=== PATIENT | female | born 1945 | race Caucasian/White ===

== ENCOUNTER 2023-09-25 20:45 | Emergency (ER) | payer OTHER, SELFPAY ==
[2023-09-25 20:53] VITALS: BP 154/68
--- NOTE | 2023-09-25 21:22 | ED.GENMED ---
History of Present Illness
<Brandi London PA-C - Last Filed: 09/26/23 00:33>
General
Chief Complaint: Fall
Source: patient
Exam Limitations: none
Time Seen by Provider: 09/25/23 21:03
Nursing documentation reviewed up to this point in time: agreed with
Travel History
Have you had any contact with someone who has COVID-19?: No
Do you have any symptoms of coronavirus? Fever > 100 degrees, chills, cough, shortness of breath, sore throat, loss of taste or smell, muscle aches, or headache?: No
History of Present Illness
History of Present Illness:
Patient is a 78-year-old female with history hypertension, hyperlipidemia, CAD, diabetes presenting for evaluation following mechanical fall earlier today. Patient states that she tripped and fell off her deck step landing on the left side of her
body and twisting her right leg in the process. She came down landing on her right leg which was bent. she is having somewhat significant pain in her right upper calf and difficulty ambulating. She attempted to fall asleep but the pain was too
much to sleep so she came to the emergency department for further evaluation. Patient did notice a small abrasion to her left foot as well. Patient did not hit her head or lose consciousness. She has ambulated very minimally since fall. Patient
denies any numbness/tingling in bilateral lower extremities.
Patient specifically denies any neck pain, back pain, chest pain, shortness of breath. Patient does not take any blood thinners.
Patient reports last tetanus shot was 2 years ago.
Past History
<Brandi London PA-C - Last Filed: 09/26/23 00:33>
Past History
ED Past Medical History: HTN, Hypercholesterolemia, IDDM and Other (endocrine (hypothyroidism))
ED Past Surgical History: Gynecological and Other (Thyroid)
Social History
Tobacco: Non-smoker
Alcohol: None
Drug: None
Personal:
Living: with family
Employment: Not employed
Review of Systems
<Brandi London PA-C - Last Filed: 09/26/23 00:33>
Review of Systems
Allergies reviewed?: Yes
All Other Systems: ROS reviewed and negative except as documented in HPI and ROS
Phy Exam
<Brandi London PA-C - Last Filed: 09/26/23 00:33>
Physical Exam
Physical Exam:
Vitals: Patient's vital signs are stable. Afebrile
General: Patient is well appearing, no acute distress
Skin: Warm and dry, mild superficial abrasion on left dorsal foot
Head: Normocephalic, atraumatic
Eyes: Sclera nonicteric. EOMs intact. No nystagmus.
Throat: Protecting airway
Neck: Normal ROM, no cervical spine tenderness, no meningismus. Trachea midline. No midline spinal tender
Cardiac: Regular rate and rhythm, no murmurs.
Pulm: Normal respiratory effort, no wheezes, rales, rhonchi heard on exam.
Abdomen: Abdomen soft. No abdominal tenderness. No bruising.
Extremities:Superficial abrasions to left dorsal foot as noted above. Mild edema and erythema of left ankle most significant at lateral malleolus with very minimal tenderness. Full range of motion in left ankle without pain. No pain at base of
fifth metatarsal, midfoot, hindfoot, or head of fibula. Full range of motion with no tenderness in bilateral hips. Pelvis stable. Right ankle nontender. No bony tenderness of right knee. Pain noted in right calf with flexion of right knee.
Tenderness to palpation on the right lateral calf muscle. Negative anterior drawer test. No laxity with varus/valgus stress in right knee. Great distal pulses in bilateral lower extremities with sensation fully intact.
Neuro: AAOx3. CN II-XII intact. No focal neurologic deficits.
Psychiatric: Normal affect.
Course
<Brandi London PA-C - Last Filed: 09/26/23 00:33>
Orders/Labs/Results
Orders:
Orders
09/25/23 21:20
Acetaminophen [Tylenol] 650 mg PO NOW STA
Ankle, left 3 view CR [CR Ankle - Left Min 3 Views ] Urgent
Comment:
Reason For Exam: fall, left ankle swelling
Leg Tibia/Fibula, Right 2 View [CR Leg Tibia/fibula Right 2 Vw] Urgent
Comment:
Reason For Exam: fall right lower leg pain
Vital Signs
Initial and Last Documented VS:
Initial Vital Signs
Temp Pulse BP Pulse Ox
98.2 F 75 154/68 99
09/25/23 20:53 09/25/23 20:53 09/25/23 20:53 09/25/23 20:53
Last Documented Vital Signs
Temp Pulse BP Pulse Ox
98.2 F 75 154/68 99
09/25/23 20:53 09/25/23 20:53 09/25/23 20:53 09/25/23 20:53
<Mekhi Mcduffie DO - Last Filed: 09/25/23 23:01>
Orders/Labs/Results
Orders:
Orders
09/25/23 21:20
Acetaminophen [Tylenol] 650 mg PO NOW STA
Ankle, left 3 view CR [CR Ankle - Left Min 3 Views ] Urgent
Comment:
Reason For Exam: fall, left ankle swelling
Leg Tibia/Fibula, Right 2 View [CR Leg Tibia/fibula Right 2 Vw] Urgent
Comment:
Reason For Exam: fall right lower leg pain
Vital Signs
Initial and Last Documented VS:
Initial Vital Signs
Temp Pulse BP Pulse Ox
98.2 F 75 154/68 99
09/25/23 20:53 09/25/23 20:53 09/25/23 20:53 09/25/23 20:53
Last Documented Vital Signs
Temp Pulse BP Pulse Ox
98.2 F 75 154/68 99
09/25/23 20:53 09/25/23 20:53 09/25/23 20:53 09/25/23 20:53
<Brandi London PA-C - Last Filed: 09/26/23 00:33>
MDM/Problems Addressed
Differential Diagnosis Includes:
Not limited to: Contusion, sprain, fracture, muscular strain, ligamentous injury
MDM/Problems Addressed:
78-year-old female presents for evaluation of injuries sustained following mechanical slip and fall off deck step earlier today. She did not hit her head or lose conscious. Vital stable. Exam as above. Relatively well-appearing. Tetanus
up-to-date. Will give Tylenol and ice. Will check x-ray of left ankle and right tibia/fibula although do not suspect acute fracture.
Initial read of x-ray by myself and attending physician showed no acute fracture. Suspect likely abrasion/contusion of left ankle. No evidence of fracture of right lower leg. Given she is most significantly tender with palpation of right
calf�suspect likely calf muscle strain. There is a small area of bruising on right lateral calf. Ligaments of right knee appear intact. She is improved moderately with ice and Tylenol. Stable for discharge with Tylenol, elevation, ice. Return
precautions discussed with patient. Discussed likely will notice worsening bruising over the next few days. Patient comfortable with plan. All questions answered.
Chronic conditions affecting care:
Hypertension
Acute Exacerbation and/or Progression of Chronic Illness:
Acutely hypertensive
<Brandi London PA-C - Last Filed: 09/26/23 00:33>
*Radiology
Radiology exam reviewed: preliminary read by ED provider (No acute fracture)
*Pulse Oximetry
Patient hypoxic: no
*EKG
Interpreted by ED Provider?: NA
*Framing Mill Operator Helper Interpretation
Rate: Framing Mill Operator Helper- N/A
*Critical Care Note
Total Time (30-74mins, 75-104mins- exclusive of procedures): Not Applicable
ED Attending Note
<Brandi London PA-C - Last Filed: 09/26/23 00:33>
-
Portions of this chart may have been created with voice recognition software.� Occasional wrong word or��sound alike� substitutions may have occurred due to the inherent limitations of voice recognition software.
<Mekhi Mcduffie DO - Last Filed: 09/25/23 23:01>
ED Attending Note
Patient seen and examined by attending physician: Yes
I performed the substantive portion of visit, reviewed & personally made and approve the management plan that is documented in note by myself or JUANY.: Yes
ED Attending Note:
Patient is a 78-year-old female who slipped and fell off with her right leg going back underneath her and injuring her left ankle as well as complaining of pain in her right lower leg/knee. Patient was having difficulty weightbearing. Patient
tried to sleep but the pain was too much. Patient came to the emergency department patient denies any head injury. Patient states she was stepping off the deck when it happened. On physical exam patient does not appear to be in any distress.
Patient's pelvis and hips are nontender. Patient's full range of motion of the right hip and left hip without pain or tenderness. Right knee is intact and stable without tenderness although the right lateral gastroc proximally is tender with mild
swelling. Left ankle is nontender and stable but has a anterior lateral superficial abrasion. X-rays were normal. Patient will need ice and Tylenol.
Discharge Plan
Departure
Patient Disposition: Home (Routine Discharge)
Date of Disposition: 09/25/23
Time of Disposition: 23:00
Patient with high blood pressure during this ER visit?: Yes
Condition: Good
Covid-19: Not Applicable
Discharge Problem:
Fall, Strain of right calf muscle, Abrasion of left foot, Left ankle injury
Instructions: Lower Extremity Muscle Strain (DC), Abrasions ED, BLOOD PRESSURE
Prescriptions:
No Action
latanoprost 1 DROP drops
1 drp BOTH EYES HS
insulin aspart U-100 [Novolog FlexPen U-100 Insulin] 300 UNITS/3 ML insulin pen
2 units SC AC
rosuvastatin 10 MG tablet
10 mg PO HS
aspirin 81 MG tablet,delayed release (DR/EC)
81 mg PO Q48H Qty: 1 0RF
Rx Instructions:
Take every other day
amlodipine 5 MG tablet
5 mg PO DAILY
levothyroxine 75 MCG tablet
75 mcg PO DAILY@0400
ascorbate calcium (vitamin C) [Irma-C] 500 MG tablet
500 mg PO DAILY
naproxen sodium [Aleve] 220 MG tablet
220 - 440 mg PO [id number] PRN (Reason: mild pain)
losartan [Cozaar] 100 MG tablet
100 mg PO DAILY
vitamin B complex [Neurodep] 1 CAP capsule
1 cap PO DAILY
cholecalciferol (vitamin D3) 1,000 UNITS tablet
1,000 units PO DAILY
insulin glargine [Lantus Solostar U-100 Insulin] 300 UNITS/3 ML insulin pen
13 units SC QPM
Patient Comments:
pt takes before dinner
Lutein
1 tab PO DAILY
Lysine
1 tab PO DAILY
mupirocin 1 APPLIC ointment
1 tube topical DAILY Qty: 1 0RF
collagenase clostridium histo. [Santyl] 1 APPLIC ointment
1 tube topical DAILY Qty: 1 0RF
doxycycline hyclate 100 MG capsule
100 mg PO Q12 10 Days Qty: 20 0RF
cephalexin 500 MG capsule
500 mg PO BID 10 Days Qty: 20 0RF
Referrals:
Daljit Drake MD [Active] - As needed
UNKNOWN - PT DOES,NOT KNOW [Family Provider] -
Activity Restrictions/Additional Instructions:
RETURN TO THE EMERGENCY DEPARTMENT WITH ANY SEVERE PAIN, NUMBNESS/ TINGLING IN LOWER EXTREMITIES, SIGNIFICANT WORSENING IN SWELLING OR REDNESS OF LOWER EXTREMITIES, WORSENING IN CURRENT SYMPTOMS, OR ANY OTHER CONCERNS
-As discussed�you should continue to elevate and ice your right leg as often as possible. Take Tylenol as needed for discomfort. Is important that you keep the abrasion on your left foot clean and dry. Monitor for signs of infection return
promptly with any acute worsening.
-A number for orthopedic has been provided for you above. You should follow-up if these symptoms persist/worsen
Interventions
Interventions:
*Risk Screen - Suicide Last Done: 09/25/23 22:03
*General Assessment Last Done: 09/25/23 22:03
*ED COVID-19 Vaccine History Last Done: 09/25/23 22:03
ED-Musculoskeletal Assessment Last Done: 09/25/23 22:03
ED- Neurological Assessment Last Done: 09/25/23 22:03
ED-Skin Assessment Last Done: 09/25/23 22:03
Discharge Date and Time
Print Language: INDONESIAN
[2023-09-25] MEDS: TYLENOL 650 MG PO (21:37)
== END 2023-09-25 23:35 | disposition home or self-care (01) ==
LOC: EMR 20:45
PROVIDERS: EMERGENCY PHYSICIAN Emergency Medicine
DX: S86.111A Strain of other muscle(s) and tendon(s) of posterior muscle group at lower leg level, right leg, initial encounter (principal); S90.812A Abrasion, left foot, initial encounter; S99.912A Unspecified injury of left ankle, initial encounter; M25.461 Effusion, right knee; W01.0XXA Fall on same level from slipping, tripping and stumbling without subsequent striking against object, initial encounter; I10 Essential (primary) hypertension; I25.10 Atherosclerotic heart disease of native coronary artery without angina pectoris; E10.9 Type 1 diabetes mellitus without complications; E03.9 Hypothyroidism, unspecified; E78.00 Pure hypercholesterolemia, unspecified; Z79.4 Long term (current) use of insulin; Z79.82 Long term (current) use of aspirin
CPT/HCPCS: 99283; 73590; 73610

== ENCOUNTER → 2025-01-12 07:43 | Outpatient (REF) | payer OTHER, SELFPAY | LOC: RAD 07:43 | PROVIDERS: ATTENDING PHYSICIAN Nurse Practitioner Family; FAMILY PHYSICIAN Internal Medicine | DX: M81.0 Age-related osteoporosis without current pathological fracture (principal) | CPT/HCPCS: 77080 ==